=== PATIENT | male | born 1945 | race Two or more races ===

== ENCOUNTER 2025-01-02 06:23 | Emergency (ER) | payer OTHER ==
[~2025-01-02] VITALS: Ht 175.3 cm; Wt 90.7 kg
[2025-01-02] MEDS ORDERED: TRIAMCINOLONE ACETONIDE 40 MG/ML VIAL IM ONE (08:15)
[2025-01-02] MEDS ORDERED: KETOROLAC TROMETHAMINE 60 MG VIAL IM ONE ×2 (08:15→08:19)
[2025-01-02] MEDS ORDERED: TRIAMCINOLONE ACETONIDE 40 MG/ML VIAL ONE (08:19)
[2025-01-02] MEDS ORDERED: LEVALBUTEROL HCL 1.25 MG/3 ML SOLUTION IH SCH (10:30)
[2025-01-02] MEDS ORDERED: levoFLOXacin IN DEXTROSE 5 % 5 MG/ML PIGGYBAG IV ONE (10:30)
[2025-01-02] MEDS ORDERED: LEVALBUTEROL HCL 1.25 MG/3 ML SOLUTION IH ONE (10:34)
[2025-01-02 10:40] LABS: HEMATOCRIT 42.6 % (39.0-48.0); HEMOGLOBIN 14.8 g/dL (13-16.00); MEAN CELL VOLUME 89.1 fL (80.0-100.00); MEAN CORPUSCULAR HEMOGLOBIN 30.9 pg (27.00-32.0); MEAN CORPUSCULAR HGB CONC 34.6 g/dl (32.0-36.0); PLATELET COUNT 270 K/uL (150-450); RED BLOOD COUNT 4.78 M/uL (4.00-6.00); RED CELL DISTRIBUTION WIDTH 13.6 % (11.5-14.5)
[2025-01-02] MEDS ORDERED: TUSNEL LIQUID178 ML PO (11:13)
[2025-01-02] MEDS ORDERED: LEVOFLOXACIN750 MG PO (11:13)
[2025-01-02] MEDS ORDERED: PROAIR RESPICL90 MCG IH (11:13)
[2025-01-02] MEDS ORDERED: MEDROLPACK PO (11:14)
[2025-01-02 11:24] LABS: BILIRUBIN TOTAL 0.74 mg/dL (0.3-1.2); CALCIUM 8.8 mg/dL (8.5-10.1); CREATININE SERUM 1.31 mg/dL (0.70-1.30); GFR 52.92; GLOBULINA 3.5 G/DL (2.4-3.5); POTASSIUM 4.49 mEq/L (3.5-5.1); TOTAL PROTEIN 6.5 gm/dL (6.4-8.2)
== END 2025-01-02 12:06 | disposition home or self-care (01) ==
LOC: ER 06:26
PROVIDERS: General Practice
DX: J18.9 Pneumonia, unspecified organism (principal); R05.8 Other specified cough; K21.9 Gastro-esophageal reflux disease without esophagitis; Z87.438 Personal history of other diseases of male genital organs; Z20.822 Contact with and (suspected) exposure to COVID-19
CPT/HCPCS: 36415; 71250; 99284; J1885; J3301